=== PATIENT | male | born 1995 | race Caucasian/White ===

== ENCOUNTER 2025-04-13 17:47 | Emergency (ER) | payer MEDICAID ==
[~2025-04-13] VITALS: Ht 200.7 cm; Wt 104.0 kg
--- NOTE | 2025-04-13 18:09 | Physician Documentation ---
History of Present Illness ~ Chief Complaint: ETOH Stated Complaint: ETOH Time Seen by MD: 18:05 HPI 49-year-old male who is homeless and occasionally stays at the [facility] [place] presents intoxicated alcohol today. He says he drank too much today because people are giving him threats. He could not elaborate on this but he said he is related to him being large.. Said that he drank several cans of hurricane malt liquor Medication Reconciliation Allergies: Coded Allergies: No Known Allergies (Unverified , 04/13/25) Review of Systems All Other Systems at this time: Reviewed and Negative ROS As stated above in the HPI, otherwise all systems are reviewed and negative. Physical Exam Vital Signs: Temperature: 98.9, Source: Temporal, Heart Rate: 98, Respiratory Rate: 24, BP: 127/75, Pulse Oximetry: 97, Weight: 104.000 Physical Exam General: Alert, no apparent distress. appears intoxication HEENT: PERRL, EOMI, no injection, moist mucous membranes. Neurologic: Oriented x4. Psychiatric: Normal mood and affect. Skin: Normal color, warm and dry. No edema, no ecchymosis. Progress Results/Orders Results/Orders Orders - EARL BATISTA [employer] LEADER Po Challenge (04/13/25 18:53) Gait Test (04/13/25 18:53) Completed Orders - EARL BATISTA [employer] LEADER Normal Saline 1000ml (Sodium Chloride 10 (04/13/25 18:10) Medications Received in ER Medications (Trade) Dose Ordered Sig/Wagner Route PRN Reason Start Time Stop Time Status Last Admin Dose Admin (sodium chloride 1000ml IV soln) 1,000 ml ONCE ONCE IVB 04/13/25 18:10 04/13/25 18:11 DC 04/13/25 19:11 1,000 ML Vital Signs 04/13/25 04/13/25 17:53 19:09 Temp 98.9 98.9 Pulse 98 96 Resp 24 14 B/P (MAP) 127/75 121/61 (81) Pulse Ox 97 97 Medical Decision Making Findings Patient does not present acutely ill however he does present acutely intoxicated.. He will be monitored in the ED and given multiple fluid boluses while he metabolizes ETOH. Going to have the nursing staff road test him or ambulation test him before he is safe to discharge. Patient was provided fluid boluses and gait tested by the nursing staff which he pass without difficulty. I am going to get him a cab back to the [place] where he stays for a safe discharge Differential Dx:Considerations: Intoxication - ETOH, Intoxication - other drug, Sub. Abuse -continuous, Sub. Abuse-intermittent, Skull fracture, Fracture - other bone, Personality disorder, Closed head injury, Cervical spine injury, Abrasion, Confusion, Hematoma, Laceration, Foreign body, Dehydration, Encephalopathy, Hepatitis, Pancreatitis, Thiamine deficiency, Other Departure Disposition: 01 HOME / SELF CARE / HOMELESS Impression: Primary Impression: Alcoholic intoxication Condition: Stable Discharge Instructions: Alcohol Intoxication Referrals: NO PRIMARY CARE PROVIDER (PCP) Signature Scribe Signature: t Attestation: Scribed for Emergency,Department by Earl Velasquez NP . 04/13/25 18:09 EARL BATISTA NP Apr 13, 2025 18:09
[2025-04-13] MEDS: normal saline 1000ML IV soln IVB ONE (19:11)
[2025-04-13 21:28] VITALS: BP 109/62; PULSE 82; RESP 18; TEMP 98.9; O2SAT 95
== END 2025-04-13 22:08 | disposition home or self-care (01) ==
LOC: ER 17:48
DX: F10.129 Alcohol abuse with intoxication, unspecified (principal); Y90.9 Presence of alcohol in blood, level not specified
CPT/HCPCS: 96360; 99283; J7030